=== PATIENT | female | born 1975 ===

== ENCOUNTER 2018-04-04 10:40 | Outpatient (CLI) | payer OTHER | END 2018-04-04 10:41 | disposition home or self-care (01) | LOC: BICULT 10:40 | PROVIDERS: ATTEND Otolaryngology Otolaryngic Allergy | DX: E04.1 Nontoxic single thyroid nodule (principal) | CPT/HCPCS: 76536 ==

== ENCOUNTER 2019-06-10 09:45 | Outpatient (CLI) | payer OTHER ==
--- NOTE | 2019-06-10 10:50 | ULT ---
THYROID ULTRASOUND: HISTORY: Thyroid nodule. COMPARISON: None. FINDINGS: Thyroid isthmus measures 0.2 cm. Right thyroid lobe measures 1.9 x 1.7 x 5.5 cm. Left thyroid lobe measures 1.3 x 1.5 x 5.2 cm. Right thyroid lobe: Well-circumscribed 0.3 cm solid nodule in the lower pole. Complex solid and cysti c nodule in the mid pole of the right thyroid lobe measuring 1.1 x 2.6 cm. A 0.4 cm solid nodule in the mid right thyroid lobe. Left thyroid lobe: Mixed solid and cystic nodule in the left thyroid lobe measuring 0.6 cm. IMPRESSION: Dominant mixed solid and cystic nodule in the right thyroid lobe. Nodule has a TI-RADS calculator sco re of TR3, mildly suspicious. Given the size of lesion, fine needle aspiration is recommended. CODE T Transcribed Date/Time: 06/10/2019 10:56 AM
== END 2019-06-10 09:46 | disposition home or self-care (01) ==
LOC: BICULT 09:45
PROVIDERS: ATTEND Otolaryngology Otolaryngic Allergy
DX: E04.1 Nontoxic single thyroid nodule (principal)
CPT/HCPCS: 76536